=== PATIENT | male | born 1990 | race Caucasian/White ===

== ENCOUNTER 2019-06-23 10:38 | Emergency (ER) | payer OTHER ==
[~2019-06-23] VITALS: Ht 180.3 cm; Wt 93.0 kg
[2019-06-23 10:56] VITALS: BP_SYST 159
--- NOTE | 2019-06-23 13:00 | NUR ---
Patient to ER bed H1 to gown for evaluation. Side rails up.
--- NOTE | 2019-06-23 13:15 | NUR ---
CHANDA CHA at bedside examining patient.
[2019-06-23] MEDS ORDERED: IBUPROFEN 800 MG TABLET PO ONE (13:30)
[2019-06-23] MEDS ORDERED: DIPH-TET-PERTUS Vaccine 0.5 ML VIAL (ADACEL) I.M. ONE (13:30)
[2019-06-23] MEDS ORDERED: BACITRACIN 1 GM OINT TP ONE (13:30)
--- NOTE | 2019-06-23 14:00 | NUR ---
Site to NS cleansed with BACITRACIN. Tetanus vaccination GIVEN
[2019-06-23 14:44] VITALS: BP_SYST 150
--- NOTE | 2019-06-23 14:44 | NUR ---
Patient given written and verbal discharge instructions and verbalizes understanding. ER MD discussed with patient the results and treatment provided. Patient in stable condition. ID arm band removed. Rx of NEOSPORIN AND MOTRIN given. Patient educated on pain management and to follow up with PMD. Pain Scale 2. Opportunity for questions provided and answered. Medication side effect fact sheet provided.
== END 2019-06-23 14:44 | disposition home or self-care (01) ==
LOC: SED 10:38
DX: S61.102A Unspecified open wound of left thumb with damage to nail, initial encounter (principal); W29.8XXA Contact with other powered hand tools and household machinery, initial encounter; Y93.89 Activity, other specified; Y92.89 Other specified places as the place of occurrence of the external cause; Y99.8 Other external cause status
CPT/HCPCS: 90715; 99283